=== PATIENT | male | born 1985 | race Hispanic/Latino ===

== ENCOUNTER 2025-03-06 13:21 | Emergency (ER) | payer SELFPAY ==
[2025-03-06] MEDS ORDERED: Ondansetron PF 4 MG/2 ML Vial ONE (14:50)
[2025-03-06 15:28] LABS: #Basophils Less than 0.03 10x3/uL (0.0-0.2); #Eosinophils 0.03 10x3/uL (0.0-0.5); #Monocytes 0.71 10x3/uL (0.0-1.1); #Neutrophils 3.91 10x3/uL (1.5-8.4); %Basophils 0.3 % (0.0-2.0); %Eosinophils 0.5 % (0.0-6.0); %Lymphocytes 23.7 % (18.0-47.0); %Monocytes 11.6 % (0.0-10.0); %Neutrophils 63.7 % (40.0-75.0); Hematocrit 41.0 % (38.8-50.0); Hemoglobin 14.6 g/dL (13.5-17.5); Mean Corpuscular Hemoglobin 30.2 pg (27.0-33.0); Mean Corpuscular Volume 84.7 fL (81.2-95.1); Platelet Count 197 10x3/uL (150-450); Red Blood Cell (RBC) Count 4.84 10x6/uL (4.32-5.72); White Blood Cell (WBC) Count 6.13 10x3/uL (3.5-10.5)
[2025-03-06 15:29] LABS: Glucose, Urine (Dipstick) >=1000 mg/dL (Negative); Leukocyte 500 (Negative); Protein, Urine (Dipstick) 15 mg/dl (Neg-Trace); Specific Gravity, Urine 1.020 (1.005-1.030)
[2025-03-06 16:03] LABS: ALT (SGPT) 26 U/L (Less than 45); AST (SGOT) 25 U/L (11-34); Albumin 3.6 g/dL (3.1-4.5); Alkaline Phosphatase 114 U/L (40-110); Anion Gap 13 mmol/L (10-20); BUN (Urea Nitrogen) 8 mg/dL (8.9-20.6); Bilirubin, Total 1.1 mg/dL (0.3-1.2); Calc. Creatinine Clearance 0 mL/min (70-130); Calcium 8.6 mg/dL (7.8-10.44); Carbon Dioxide 23 mmol/L (22-29); Chloride 101 mmol/L (98-107); Globulin 3.3 g/dL (2.4-3.5); Glucose 296 mg/dL (70-105); Potassium 3.8 mmol/L (3.5-5.1); Sodium 133 mmol/L (136-145)
[2025-03-06] MEDS ORDERED: cefTRIAXone (ROCEPHIN) 2 GM VIAL ONE (16:20)
[2025-03-06] MEDS ORDERED: Ketorolac Tromethamine 30 MG (1 mL) VIAL ONE (16:20)
[2025-03-06 16:26] LABS: Bacteria/HPF 2+ HPF (None Seen); CAUTI Indications for Culture Pelvic or flank pain; WBC/HPF 21-50 HPF (0-3); Yeast-Budding 2+ HPF (None Seen)
[2025-03-06 16:28] LABS: Mucous/LPF 1+ LPF (<2+)
[2025-03-06 16:31] LABS: Urine Culture Reflex Yes Yes
== END 2025-03-06 17:33 | disposition home or self-care (01) ==
LOC: CSHERS 13:21
DX: N39.0 Urinary tract infection, site not specified (principal); M54.42 Lumbago with sciatica, left side; E11.9 Type 2 diabetes mellitus without complications; E66.9 Obesity, unspecified; I10 Essential (primary) hypertension; Z87.891 Personal history of nicotine dependence; Z79.84 Long term (current) use of oral hypoglycemic drugs
CPT/HCPCS: 74176; 80053; 81001; 83605; 85025; 87086; 96365; 96375; J0696; J1885